=== PATIENT | male | born 1955 | race Two or more races ===

== ENCOUNTER 2018-12-07 13:35 | Emergency (ER) | payer OTHER ==
[~2018-12-07] VITALS: Ht 167.6 cm; Wt 107.0 kg
[2018-12-07] MEDS ORDERED: GLUCOPHAGE1000 MG ORAL (13:44)
[2018-12-07] MEDS ORDERED: GABAPENTIN100 MG ORAL (13:44)
[2018-12-07] MEDS ORDERED: PAXIL30 MG ORAL (13:44)
[2018-12-07] MEDS ORDERED: AMLODIPINE BESYL5 MG ORAL (13:44)
--- NOTE | 2018-12-07 13:45 | NUR ---
ED Nurse Note: Pt ambulated to ED from home, Pt c/o 10/10 pain with urination, urgency, burning. Pt also mentioned sciatic nerve pain mainly on right side. PT VSS, denies chest pain or sob. Pt does not take any medications. Pt was able to void 10mls of clear yellow urine for lab. Pt mentioned he has had a fever off and on for a few days.
[2018-12-07] MEDS ORDERED: Ketorolac 30mg Inj IV ONE (14:00)
--- NOTE | 2018-12-07 14:03 | Emergency Room Report ---
History of Present Illness General Chief Complaint: Male Urogenital Problems Source: Patient Present Illness HPI Patient presents with several days of dysuria, hematuria and difficulty initiating stream. He's also felt chills and fever. Hasn't documented temperature. He's not taking any medication for this. Last year he was told his prostate was slightly large but until recently is not had difficulty urinating. The patient denies nausea, vomiting, diarrhea, chest pain, shortness of breath, sore throat, cough, abdominal pain. He has chronic sciatic pain and is on gabapentin. Might feel slightly increased pain on the left-hand side of his back. He denies prior urinary tract infections. Pain in body rated 8/10, aching, constant. The patient also complains of insomnia. This is a chronic problem. The patient wears CPAP at night. The patient suffers from chronic sciatica bilaterally. He also has osteoarthritis in his knees. 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 He denies any increase in pain. Diabetic on oral medications. HTN on medication. Allergies: Coded Allergies: No Known Allergies (Unverified , 12/07/18) Patient History Past Medical History: see triage record Social History: Denies: smoking, alcohol use, drug use Social History Narrative at home Reviewed Nursing Documentation: PMH: Agreed; PSxH: Agreed Nursing Documentation-PMH Hx Cardiac Problems: Yes - HYPERLIPIDEMIA Hx Hypertension: Yes Hx Diabetes: Yes History Of Psychiatric Problem: Yes - DEPRESSION Review of Systems All Other Systems: negative except mentioned in HPI Physical Exam Vital Signs Date Time Temp Pulse Resp B/P (MAP) Pulse Ox O2 Delivery O2 Flow Rate FiO2 12/07/18 13:39 99.3 136 24 103/58 (73) 93 Room Air Sp02 EP Interpretation: reviewed, abnormal General Appearance: well appearing, no apparent distress, GCS 15 Head: normocephalic Eyes: bilateral eye normal inspection, bilateral eye PERRL, bilateral eye EOMI ENT: moist mucus membranes Neck: supple Respiratory: lungs clear, normal breath sounds Cardiovascular #1: regular rate, rhythm Cardiovascular #2: 2+ radial (R) Gastrointestinal: normal inspection, normal bowel sounds, non tender, no mass, non-distended, overweight Genitourinary: CVA tenderness (R) - minimal Musculoskeletal: back normal, gait/station normal, normal range of motion Neurologic: alert, oriented x3, grossly normal Psychiatric: mood/affect normal Skin: warm/dry, other - Vitiligo Medical Decision Making Diagnostic Impression: Primary Impression: Pyelonephritis Additional Impressions: Presuptive bacteremia Hyperglycemia ER Course Patient presents with hematuria fever chills difficulty initiating a stream. Differential includes pyelonephritis, urinary tract infection, hematuria, renal stone, other causes of hematuria amongst others. The patient will be evaluated with EKG, and labs. Patient is slightly tachycardic and will be treated with IV hydration and a small dose of Toradol. EKG with normal sinus rhythm [address]-T wave changes with lights the left atrial enlargement and nondiagnostic Q waves inferiorly her with ST abnormalities. Based on this troponin is added. WBC elevated. Lactate 2.0.\ Febrile. Tylenol given. Transiently hypotensive here. Improved, but will give bolus for probable bacteremia/SIRS. Bolus rest of 30 ml/kg. Antibiotics infusing. Discussed with Dr. Welsh. Accepted [facility] [place]. Improved with resolution of hypotension and pain. Laboratory Tests Test 12/07/18 14:13 White Blood Count 14.3 K/UL (4.8-10.8) H Red Blood Count 4.27 M/UL (4.70-6.10) L Hemoglobin 13.3 G/DL (14.2-18.0) L Hematocrit 37.8 % (42.0-52.0) L Mean Corpuscular Volume 89 FL (80-99) Mean Corpuscular Hemoglobin 31.3 PG (27.0-31.0) H Mean Corpuscular Hemoglobin Concent 35.3 G/DL (32.0-36.0) Red Cell Distribution Width 10.5 % (11.6-14.8) L Platelet Count 180 K/UL (150-450) Mean Platelet Volume 6.9 FL (6.5-10.1) Neutrophils (%) (Auto) 84.8 % (45.0-75.0) H Lymphocytes (%) (Auto) 8.4 % (20.0-45.0) L Monocytes (%) (Auto) 6.0 % (1.0-10.0) Eosinophils (%) (Auto) 0.1 % (0.0-3.0) Basophils (%) (Auto) 0.7 % (0.0-2.0) Prothrombin Time 13.3 SEC (9.30-11.50) H Prothrombin Time INR 1.3 (0.9-1.1) H PTT 36 SEC (23-33) H Urine Color Brown Urine Appearance Cloudy Urine pH 5 (4.5-8.0) Urine Specific Edison 1.020 (1.005-1.035) Urine Protein 3+ (NEGATIVE) H Urine Glucose (UA) 2+ (NEGATIVE) H Urine Ketones 1+ (NEGATIVE) H Urine Blood 4+ (NEGATIVE) H Urine Nitrite Negative (NEGATIVE) Urine Bilirubin 1+ (NEGATIVE) H Urine Ictotest Negative (NEGATIVE) Urine Urobilinogen 4 MG/DL (0.0-1.0) H Urine Leukocyte Esterase 3+ (NEGATIVE) H Urine RBC 2-4 /HPF (0 - 0) H Urine WBC Tntc /HPF (0 - 0) H Urine Squamous Epithelial Cells None /LPF (NONE/OCC) Urine Bacteria Many /HPF (NONE) H Sodium Level 132 MMOL/L (136-145) L Potassium Level 3.7 MMOL/L (3.5-5.1) Chloride Level 95 MMOL/L (98-107) L Carbon Dioxide Level 27 MMOL/L (21-32) Anion Gap 10 mmol/L (5-15) Blood Urea Nitrogen 16 mg/dL (7-18) Creatinine 1.1 MG/DL (0.55-1.30) Estimate Glomerular Filtration Rate > 60 mL/min (>60) Glucose Level 188 MG/DL (74-106) H Lactic Acid Level 2.00 mmol/L (0.4-2.0) Calcium Level 8.6 MG/DL (8.5-10.1) Total Bilirubin 0.9 MG/DL (0.2-1.0) Aspartate Amino Transferase (AST) 12 U/L (15-37) L Alanine Aminotransferase (ALT) 17 U/L (12-78) Alkaline Phosphatase 61 U/L (46-116) Total Creatine Kinase 90 U/L (26-308) Troponin I 0.000 ng/mL (0.000-0.056) Total Protein 7.1 G/DL (6.4-8.2) Albumin 3.4 G/DL (3.4-5.0) Globulin 3.7 g/dL Albumin/Globulin Ratio 0.9 (1.0-2.7) L Lipase 96 U/L (73-393) EKG Diagnostic Results Rate: normal Rhythm: NSR ST Segments: no acute changes - Left atrial enlargement Rhythm Strip Diag. Results EP Interpretation: yes Rhythm: NSR, no PVC's, no ectopy Chest X-Ray Diagnostic Results Chest X-Ray Diagnostic Results : Chest X-Ray Ordered: Yes # of Views/Limited/Complete: 1 View Indication: Other EP Interpretation: Yes Interpretation: no consolidation, no effusion, no pneumothorax Impression: No acute disease Electronically Signed by: Electronically signed by Benito Amezquita MD Last Vital Signs Date Time Temp Pulse Resp B/P (MAP) Pulse Ox O2 Delivery O2 Flow Rate FiO2 12/07/18 17:42 98.7 82 16 95/48 95 Room Air Status: improved Disposition: XFER SHT-TRM HOSP Condition: Serious Benito Amezquita MD December 07, 2018 14:03
[2018-12-07 14:26] VITALS: BP_SYST 103; BP_SYST 90; BP_DIAS 55; BP_DIAS 58
[2018-12-07] MEDS ORDERED: Acetaminophen 500mg (ES) tab ORAL ONE (14:30)
[2018-12-07 14:44] LABS: APPEARANCE,URINE CLOUDY; BASOPHILS % (AUTO) 0.7 % (0.0-2.0); BILIRUBIN, URINE 1+ (NEGATIVE); COLOR,URINE BROWN; EOSINOPHILS % (AUTO) 0.1 % (0.0-3.0); GLUCOSE, URINE (UA) 2+ (NEGATIVE); HEMATOCRIT 37.8 % (42.0-52.0); HEMOGLOBIN 13.3 G/DL (14.2-18.0); KETONES,URINE 1+ (NEGATIVE); LEUKOCYTE ESTERASE ,URINE 3+ (NEGATIVE); LYMPHOCYTES % (AUTO) 8.4 % (20.0-45.0); MEAN CORPUSCULAR VOLUME 89 FL (80-99); NEUTROPHILS % (AUTO) 84.8 % (45.0-75.0); NITRITE,URINE NEGATIVE (NEGATIVE); PH,URINE 5 (4.5-8.0); PLATELET COUNT 180 K/UL (150-450); PROTEIN,URINE 3+ (NEGATIVE); RED BLOOD COUNT 4.27 M/UL (4.70-6.10); RED CELL DISTRIBUTION WIDTH 10.5 % (11.6-14.8); UROBILINOGEN,URINE 4 MG/DL (0.0-1.0); WHITE BLOOD COUNT 14.3 K/UL (4.8-10.8)
--- NOTE | 2018-12-07 14:45 | NUR ---
ED Nurse Note: Pt resting comfortably, states pain is resolved. Will continue to monitor. VSS.
[2018-12-07 14:55] LABS: ANION GAP 10 mmol/L (5-15); BLOOD UREA NITROGEN 16 mg/dL (7-18); CALCIUM 8.6 MG/DL (8.5-10.1); CARBON DIOXIDE 27 MMOL/L (21-32); CHLORIDE 95 MMOL/L (98-107); CREATININE 1.1 MG/DL (0.55-1.30); POTASSIUM 3.7 MMOL/L (3.5-5.1); SODIUM 132 MMOL/L (136-145)
[2018-12-07 15:00] LABS: ALANINE AMINOTRANSFERASE 17 U/L (12-78); ALBUMIN 3.4 G/DL (3.4-5.0); ALBUMIN/GLOBULIN RATIO 0.9 (1.0-2.7); ALKALINE PHOSPHATASE 61 U/L (46-116); ASPARTATE AMINO TRANSFERASE 12 U/L (15-37); BILIRUBIN,TOTAL 0.9 MG/DL (0.2-1.0); CREATINE KINASE 90 U/L (26-308)
[2018-12-07 15:04] LABS: INR 1.3 (0.9-1.1)
[2018-12-07] MEDS ORDERED: cefTRIAXone 1 GM in NS 55 ML IVPB ONE (15:30)
--- NOTE | 2018-12-07 15:45 | NUR ---
ED Nurse Note: Pt cofortable sitting up in bed, denies pain. VSS, will continue to monitor
[2018-12-07 16:15] VITALS: BP 92/55
--- NOTE | 2018-12-07 16:37 | Diagnostic Imaging Report ---
Indication: Chest pain Comparison: None A single view chest radiograph was obtained. Findings: Cardiomediastinal appearance is within normal limits for age. The lungs are clear. Pulmonary vascularity is appropriate. The diaphragmatic contour is smooth and costophrenic angles are sharp. No pleural effusions are identified. There is a right clavicle fracture not evaluated well on this study. Correlate clinically. Impression: No acute findings. Right clavicle fracture presumably old, but please confirm clinically.
--- NOTE | 2018-12-07 16:41 | NUR ---
ED Nurse Note: Pt began sweating 30 mins after starting levofloaxcin IV, pt denies chest pain or sob. Denies pain. Pt states " I feel fine". Pt's BS 105, notified of symptoms and BS, instructed to continue IV antibiotic at this time. Will continue to monito Addendum: 12/07/18 at 1818 by KDEARING ED Nurse Note: IV site left forearm intact, no hives present no redness or pain noted.
[2018-12-07 16:44] VITALS: BP 87/50
[2018-12-07] MEDS ORDERED: SODIUM CHLORIDE IVLG ONE (16:45)
--- NOTE | 2018-12-07 17:10 | NUR ---
ED Nurse Note: Pt states "i feel good", no signs of distress. Pt VSS, BP 98/46, HR 82, RR 16, Spo2 96% on room air, temp 98.8. Pt denies chest pain or sob, denies pain at IV site. Iv site without infiltration, heat, redness or swelling.
[2018-12-07 17:30] VITALS: BP 89/45
[2018-12-07 17:42] VITALS: BP 95/48
--- NOTE | 2018-12-07 17:42 | NUR ---
ER DISCHARGE NOTE: Patient is cleared to be transfered to [facility] to be admitted per ERMD, pt is aox4, on room air, with stable vital signs.pt was able to verbalize understanding, pt id band removed. pt was transfered via gurney. pt took all belongings. Report given to EMS and Ian BURDEN from [facility]. Addendum: 12/07/18 at 1826 by KDEARING ED Nurse Note: Pt left with ems with 20g in the left forearm, intact and running 1L NS
--- NOTE | 2018-12-09 15:29 | Cardiology Report ---
APPROVED REPORT EKG Measurement Heart [id number] Normal sinus rhythm Possible Left atrial enlargement Cannot rule out Anterior infarct, age undetermined Abnormal ECG
== END 2018-12-07 17:42 | disposition other institution (70) ==
LOC: EMR 15:10
DX: N12 Tubulo-interstitial nephritis, not specified as acute or chronic (principal); E11.65 Type 2 diabetes mellitus with hyperglycemia; I10 Essential (primary) hypertension; F32.9 Major depressive disorder, single episode, unspecified; E78.5 Hyperlipidemia, unspecified; G47.00 Insomnia, unspecified; M17.0 Bilateral primary osteoarthritis of knee
CPT/HCPCS: 36415; 71045; 80053; 81003; 82550; 82962; 83605; 83690; 84484; 85025; 85610; 85730; 87040; 87086; 87181; 93005; 96361; 96365; 96368; 96375; 99284; J0696; J1885; J1956